=== PATIENT | female | born 1995 ===

== ENCOUNTER 2019-08-19 03:15 | Emergency (ER) | payer MEDICAID ==
[2019-08-19] MEDS ORDERED: Ondansetron 4 MG Tab.DIS PO STA (03:55)
[2019-08-19] MEDS ORDERED: Alum Hydroxide/Mag Hydroxide 15 ML, Lidocaine 2% 15 ML PO ONE ×2 (03:55)
[2019-08-19] MEDS ORDERED: Sodium Chloride 0.9% 10 ML Syringe FLUSH PRN (04:16)
[2019-08-19] MEDS ORDERED: Ondansetron 4 MG/2 ML SDV IVPUSH ONE (04:17)
[2019-08-19] MEDS ORDERED: Morphine 2 MG/ML SYRINGE IVPUSH ONE (04:17)
[2019-08-19] MEDS ORDERED: Sodium Chloride 0.9% 1,000 ML IV SCH (04:30)
[2019-08-19] MEDS ORDERED: Iopamidol 755 Mg/ML 100 ML Bottle IV ONE (05:49)
--- NOTE | 2019-08-19 06:33 | EDM.PDOC ---
ED HPI GENERAL MEDICAL PROBLEM - General Chief Complaint: Abdominal Pain Stated Complaint: STOMACH PAIN Time Seen by Provider: 08/19/19 03:40 Source of Information: Reports: Patient History Limitations: Reports: No Limitations - History of Present Illness INITIAL COMMENTS - FREE TEXT/NARRATIVE: Patient presented to the ED because of cramping abdominal pain which started yesterday followed by N/V/D. The stool is mostly watery. There is no fever or chills,no urinary symptoms. Bilateral Middle Abdomen Pain Score (Numeric/FACES): 10 - Related Data Allergies Allergy/AdvReac Type Severity Reaction Status Date / Time No Known Allergies Allergy Verified 08/19/19 03:33 Home Meds: Home Meds Albuterol Sulfate [Albuterol Sulfate Hfa] 2 puff INH QID PRN 08/19/19 [History] Aluminum Chloride [Drysol] 1 dose TOP BEDTIME PRN 08/19/19 [History] Cetirizine [ZyrTEC] 10 mg PO DAILY 08/19/19 [History] Cholecalciferol (Vitamin D3) [Vitamin D3] 1,000 units PO DAILY 08/19/19 [History] ClonazePAM [KlonoPIN] 0.5 mg PO TID 08/19/19 [History] Codeine/guaiFENesin [Robitussin AC] 5 ml PO Q4HR PRN 08/19/19 [History] Escitalopram Oxalate 20 mg PO DAILY 08/19/19 [History] Fluticasone Propionate [Flonase] 2 sprays NASBOTH DAILY PRN 08/19/19 [History] Gabapentin [Neurontin] 300 mg PO BEDTIME 08/19/19 [History] Levothyroxine 75 mcg PO DAILY 08/19/19 [History] Montelukast [Singulair] 10 mg PO DAILY 08/19/19 [History] Naproxen 500 mg PO BID 08/19/19 [History] Ondansetron [Zofran ODT] 4 mg PO Q4H PRN #5 tab.dis 08/19/19 [Rx] Propranolol HCl [Propranolol] 80 mg PO DAILY 08/19/19 [History] SUMAtriptan [Imitrex] 50 mg PO DAILY PRN 08/19/19 [History] Tretinoin [Retin-A 0.025% Cream] 1 dose TOP BEDTIME 08/19/19 [History] Zolpidem Tartrate [Ambien] 5 mg PO BEDTIME PRN 08/19/19 [History] busPIRone HCl [Buspirone HCl] 15 mg PO TID 08/19/19 [History] metFORMIN HCl [Metformin HCl] 500 mg PO BID 08/19/19 [History] ondansetron HCL [Ondansetron HCl] 4 mg PO Q8HR PRN 08/19/19 [History] polyethylene glycoL 3350 [MiraLAX] 17 gm PO DAILY 08/19/19 [History] Past Medical History Cardiovascular History: Reports: Hypertension 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 Musculoskeletal History: Reports: Other (See Below) Other Musculoskeletal History: chronic knee pain Psychiatric History: Reports: Depression Dermatologic History: Reports: Melanoma - Past Surgical History Female Surgical History: Reports: Breast Reduction Endocrine Surgical History: Reports: Thyroidectomy Social & Family History - Family History Family Medical History: Noncontributory - Tobacco Use Smoking Status *Q: Never Smoker - Caffeine Use Caffeine Use: Reports: Coffee - Recreational Drug Use Recreational Drug Use: No ED ROS GENERAL - Review of Systems Review Of Systems: See Below Constitutional: Reports: No Symptoms HEENT: Reports: No Symptoms Respiratory: Reports: No Symptoms Cardiovascular: Reports: No Symptoms Endocrine: Reports: No Symptoms GI/Abdominal: Reports: Abdominal Pain, Nausea, Vomiting : Reports: No Symptoms Musculoskeletal: Reports: No Symptoms Skin: Reports: No Symptoms ED EXAM, GI/ABD - Physical Exam Exam: See Below Exam Limited By: No Limitations General Appearance: Alert, No Apparent Distress Ears: Normal External Exam, Normal Canal, Hearing Grossly Normal Nose: Normal Inspection, Normal Mucosa Throat/Mouth: Normal Inspection, Normal Lips, Normal Teeth, Normal Gums Head: Atraumatic, Normocephalic Neck: Normal Inspection, Supple, Non-Tender, Full Range of Motion Respiratory/Chest: No Respiratory Distress, Lungs Clear, Normal Breath Sounds Cardiovascular: Normal Peripheral Pulses, Regular Rate, Rhythm, No Edema GI/Abdominal Exam: Normal Bowel Sounds, Soft, Other (diffusely tender) Back Exam: Normal Inspection, Full Range of Motion Extremities: Normal Inspection, Normal Range of Motion, Non-Tender Course - Vital Signs Text/Narrative:: Labs/Abd-pelvic CT was discussed with patient and verbalized full understanding NS 1 L bolus Zofran 4 mg IV x1 Morphine 2 mg IV x1 Last Recorded V/S: Last Vital Signs Temp 36.9 C 08/19/19 03:34 Pulse 93 08/19/19 03:34 Resp 16 08/19/19 03:34 BP 124/88 08/19/19 03:34 Pulse Ox 100 08/19/19 03:34 - Orders/Labs/Meds Orders: Active Orders 24 hr Category Date Time Status Abdomen Pelvis w Cont [CT] Stat Exams 08/19/19 04:18 Ordered Sodium Chloride 0.9% [Normal Saline] 1,000 ml Med 08/19/19 04:30 Active IV ASDIRECTED Sodium Chloride 0.9% [Saline Flush] Med 08/19/19 04:16 Active 10 ml FLUSH ASDIRECTED PRN Saline Lock Insert [OM.PC] Routine Oth 08/19/19 04:16 Ordered Medication Orders Sodium Chloride (Normal Saline) 1,000 mls @ 999 mls/hr IV ASDIRECTED JARED Last Admin: 08/19/19 04:29 Dose: 999 mls/hr Documented by: BRIANNA Sodium Chloride (Saline Flush) 10 ml FLUSH ASDIRECTED PRN PRN Reason: Keep Vein Open Labs: Laboratory Tests 08/19/19 08/19/19 08/19/19 Range/Units 04:15 04:15 04:15 WBC 12.1 H (4.5-12.0) X10-3/uL RBC 5.06 (3.23-5.20) x10(6)uL Hgb 13.8 (11.5-15.5) g/dL Hct 43.7 (30.0-51.3) % MCV 86.4 (80-96) fL MCH 27.3 L (27.7-33.6) pg MCHC 31.6 L (32.2-35.4) g/dL RDW 12.1 (11.5-15.5) % Plt Count 322 (125-369) X10(3)uL MPV 8.2 (7.4-10.4) fL Neut % (Auto) 77.8 (46-82) % Lymph % (Auto) 14.8 (13-37) % Archuleta % (Auto) 6.0 (4-12) % Eos % (Auto) 1 (1.0-5.0) % Baso % (Auto) 1 (0-2) % Neut # (Auto) 9.4 H (1.6-8.3) # Lymph # (Auto) 1.8 (0.6-5.0) # Archuleta # (Auto) 0.7 (0.0-1.3) # Eos # (Auto) 0.1 (0.0-0.8) # Baso # (Auto) 0.1 (0.0-0.2) # Sodium 140 (135-145) mmol/L Potassium 3.8 (3.5-5.3) mmol/L Chloride 103 (100-110) mmol/L Carbon Dioxide 28 (21-32) mmol/L BUN 10 (7-18) mg/dL Creatinine 0.7 (0.55-1.02) mg/dL Est Cr Clr Drug Dosing 104.28 mL/min Estimated GFR (MDRD) > 60 (>60) BUN/Creatinine Ratio 14.3 (9-20) Glucose 104 (80-116) mg/dL Calcium 8.8 (8.6-10.2) mg/dL Total Bilirubin 0.8 (0.1-1.3) mg/dL AST 13 (5-25) IU/L ALT 17 (12-36) U/L Alkaline Phosphatase 104 (56-112) IU/L Total Protein 7.6 (6.0-8.0) g/dL Albumin 3.8 (3.5-5.2) g/dL Globulin 3.8 g/dL Albumin/Globulin Ratio 1.0 Amylase 40 (25-115) U/L Lipase 86 (73-393) U/L HCG, Quant < 5 L (<5) mIU/mL Urine Color (YELLOW) Urine Appearance (CLEAR) Urine pH (5.0-6.5) Ur Specific Randolph (1.010-1.025) Urine Protein (NEGATIVE) mg/dL Urine Glucose (UA) (NORMAL) mg/dL Urine Ketones (NEGATIVE) mg/dL Urine Occult Blood (NEGATIVE) Urine Nitrite (NEGATIVE) Urine Bilirubin (NEGATIVE) Urine Urobilinogen (NEGATIVE) mg/dL Ur Leukocyte Esterase (NEGATIVE) Urine RBC (0-5) Urine WBC (0-5) Ur Squamous Epith Cells (NS,R,O) Urine Bacteria (NS) 07/07/20 Range/Units 05:15 WBC (4.5-12.0) X10-3/uL RBC (3.23-5.20) x10(6)uL Hgb (11.5-15.5) g/dL Hct (30.0-51.3) % MCV (80-96) fL MCH (27.7-33.6) pg MCHC (32.2-35.4) g/dL RDW (11.5-15.5) % Plt Count (125-369) X10(3)uL MPV (7.4-10.4) fL Neut % (Auto) (46-82) % Lymph % (Auto) (13-37) % Archuleta % (Auto) (4-12) % Eos % (Auto) (1.0-5.0) % Baso % (Auto) (0-2) % Neut # (Auto) (1.6-8.3) # Lymph # (Auto) (0.6-5.0) # Archuleta # (Auto) (0.0-1.3) # Eos # (Auto) (0.0-0.8) # Baso # (Auto) (0.0-0.2) # Sodium (135-145) mmol/L Potassium (3.5-5.3) mmol/L Chloride (100-110) mmol/L Carbon Dioxide (21-32) mmol/L BUN (7-18) mg/dL Creatinine (0.55-1.02) mg/dL Est Cr Clr Drug Dosing mL/min Estimated GFR (MDRD) (>60) BUN/Creatinine Ratio (9-20) Glucose (80-116) mg/dL Calcium (8.6-10.2) mg/dL Total Bilirubin (0.1-1.3) mg/dL AST (5-25) IU/L ALT (12-36) U/L Alkaline Phosphatase (56-112) IU/L Total Protein (6.0-8.0) g/dL Albumin (3.5-5.2) g/dL Globulin g/dL Albumin/Globulin Ratio Amylase (25-115) U/L Lipase (73-393) U/L HCG, Quant (<5) mIU/mL Urine Color Yellow (YELLOW) Urine Appearance Clear (CLEAR) Urine pH 7.0 H (5.0-6.5) Ur Specific Randolph 1.005 L (1.010-1.025) Urine Protein Negative (NEGATIVE) mg/dL Urine Glucose (UA) Normal (NORMAL) mg/dL Urine Ketones Negative (NEGATIVE) mg/dL Urine Occult Blood Negative (NEGATIVE) Urine Nitrite Negative (NEGATIVE) Urine Bilirubin Negative (NEGATIVE) Urine Urobilinogen Normal (NEGATIVE) mg/dL Ur Leukocyte Esterase Negative (NEGATIVE) Urine RBC 0-5 (0-5) Urine WBC 0-5 (0-5) Ur Squamous Epith Cells Occasional (NS,R,O) Urine Bacteria Rare H (NS) Meds: Medications Generic Name Dose Route Start Last Admin Trade Name Freq PRN Reason Stop Dose Admin Sodium Chloride 1,000 mls @ 999 mls/hr 08/19/19 04:30 08/19/19 04:29 Normal Saline IV 999 mls/hr ASDIRECTED JARED Administration Sodium Chloride 10 ml 08/19/19 04:16 Saline Flush FLUSH ASDIRECTED PRN Keep Vein Open Discontinued Medications Generic Name Dose Route Start Last Admin Trade Name Freq PRN Reason Stop Dose Admin Al Hydroxide/Mg Hydroxide 15 0 ml 08/19/19 03:55 08/19/19 04:11 ml/ Lidocaine HCl 15 ml PO 08/19/19 03:56 30 ml ONETIME ONE Administration Iopamidol 100 ml 08/19/19 05:49 08/19/19 05:53 Isovue-370 (76%) IV 08/19/19 05:50 100 ml ONETIME ONE Administration Morphine Sulfate 2 mg 08/19/19 04:17 08/19/19 04:28 Morphine IVPUSH 08/19/19 04:18 2 mg ONETIME ONE Administration Ondansetron HCl 4 mg 08/19/19 03:55 08/19/19 04:11 Zofran Odt PO 08/19/19 03:56 4 mg NOW STA Administration Ondansetron HCl 4 mg 08/19/19 04:17 Zofran IVPUSH 08/19/19 04:18 ONETIME ONE Departure - Departure Time of Disposition: 06:30 Disposition: Home, Self-Care 01 Condition: Good Clinical Impression: Acute gastroenteritis - Discharge Information Prescriptions: Ondansetron [Zofran ODT] 4 mg PO Q4H PRN #5 tab.dis PRN Reason: Nausea Instructions: Viral Gastroenteritis, Adult, [id number] Referrals: Anu Orourke, [employer]INE T[employer] 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 OPERATOR [Primary Care Provider] - Forms: ED Department Discharge Additional Instructions: Please read disvcharge instructions on acute gastroenteritis Frequent hand washing Drink 2-3 liters of water a day Zofran ODT 4 mg every 4 hours as needed for nausea Imodium(over the counter) take 2 tablets every 6 hours as needed for diarrhea Follow up as needed Sepsis Event Note (ED) - Evaluation Sepsis Screening Result: No Definite Risk - Focused Exam Vital Signs: Vital Signs Temp Pulse Resp BP Pulse Ox 08/19/19 03:34 36.9 C 93 16 124/88 100 - My Orders Last 24 Hours: My Active Orders 08/19/19 04:16 Sodium Chloride 0.9% [Saline Flush] 10 ml FLUSH ASDIRECTED PRN Saline Lock Insert [OM.PC] Routine 08/19/19 04:18 Abdomen Pelvis w Cont [CT] Stat 08/19/19 04:30 Sodium Chloride 0.9% [Normal Saline] 1,000 ml IV ASDIRECTED - Assessment/Plan Last 24 Hours: My Active Orders 08/19/19 04:16 Sodium Chloride 0.9% [Saline Flush] 10 ml FLUSH ASDIRECTED PRN Saline Lock Insert [OM.PC] Routine 08/19/19 04:18 Abdomen Pelvis w Cont [CT] Stat 08/19/19 04:30 Sodium Chloride 0.9% [Normal Saline] 1,000 ml IV ASDIRECTED
== END 2019-08-19 06:46 | disposition home or self-care (01) ==
LOC: FB.ED 03:15
DX: K52.9 Noninfective gastroenteritis and colitis, unspecified (principal); I10 Essential (primary) hypertension; F32.9 Major depressive disorder, single episode, unspecified; Z79.899 Other long term (current) drug therapy; Z79.84 Long term (current) use of oral hypoglycemic drugs
CPT/HCPCS: 74177; 80053; 81001; 82150; 83690; 84702; 85025; 96361; 96374; 99284; A9270; J2270; J7030; Q9967; 99283

== ENCOUNTER 2020-07-25 20:18 | Emergency (ER) | payer MEDICAID ==
--- NOTE | 2020-07-25 20:40 | EDM.PDOC ---
ED HPI GENERAL MEDICAL PROBLEM - General Chief Complaint: Headache Stated Complaint: MIGRAINE Time Seen by Provider: 07/25/20 20:39 Source of Information: Reports: Patient, Provider History Limitations: Reports: No Limitations - History of Present Illness INITIAL COMMENTS - FREE TEXT/NARRATIVE: 25-year-old female reports she had onset of headache 3 days ago (she awoke with it). The headache was left-sided and seemed to radiate to the back of her head. It was sharp and throbbing type headache. It was associated with nausea but no vomiting. She reports the headache waxed and waned but never really went away. She states that it was like her previous migraines except that it just did not respond to the usual [id number] medications that she uses to control her headaches and that was unusual about it. She had no fevers or chills. She has been swallowing normally but she does feel that her anterior neck is somewhat tender to palpation particularly over the area of her thyroid and where she had her thyroid partially removed. That has been ongoing for about the past week. She has had no difficulty breathing. There has been no cough or nasal congestion. No sore throat. She does feel that her neck is somewhat stiff but this is also something that has been associated with her headaches in the past as well. She was seen initially in the walk-in clinic and had tests performed which showed an elevated white blood cell count at 16.0 but normal tests otherwise including a normal TSH. The patient had received IM Toradol and Reglan and Benadryl and and even received a liter of normal saline and she was still having 9/10 level of pain in her head. She reported that she got minimal relief of her headache. No vision problems. No photophobia. No arm or leg weakness. She was transferred from the walk-in clinic to the emergency department for ongoing cares and further evaluation. Please see Sarah Cardenas's note. There are no other associated signs or symptoms. There are no other modifying factors. 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 (Toradol, Reglan, Benadryl, IV fluids)) Headache Pain Score (Numeric/FACES): 10 - Related Data Allergies Allergy/AdvReac Type Severity Reaction Status Date / Time No Known Allergies Allergy Verified 08/19/19 03:33 Home Meds: Home Meds Albuterol Sulfate [Albuterol Sulfate Hfa] 2 puff INH QID PRN 08/19/19 [History] Aluminum Chloride [Drysol] 1 dose TOP BEDTIME PRN 08/19/19 [History] Cetirizine [ZyrTEC] 10 mg PO DAILY 08/19/19 [History] Cholecalciferol (Vitamin D3) [Vitamin D3] 1,000 units PO DAILY 08/19/19 [History] ClonazePAM [KlonoPIN] 0.5 mg PO BID PRN 08/19/19 [History] Codeine/guaiFENesin [Robitussin AC] 5 ml PO Q4HR PRN 08/19/19 [History] Escitalopram Oxalate 20 mg PO DAILY 08/19/19 [History] Levothyroxine 75 mcg PO DAILY 08/19/19 [History] Montelukast [Singulair] 10 mg PO DAILY 08/19/19 [History] Naproxen 500 mg PO BID 08/19/19 [History] Propranolol HCl [Propranolol] 80 mg PO DAILY 08/19/19 [History] SUMAtriptan [Imitrex] 50 mg PO DAILY PRN 08/19/19 [History] Tretinoin [Retin-A 0.025% Cream] 1 dose TOP BEDTIME 08/19/19 [History] ondansetron HCL [Ondansetron HCl] 4 mg PO Q8HR PRN 08/19/19 [History] polyethylene glycoL 3350 [MiraLAX] 17 gm PO DAILY PRN 08/19/19 [History] Azithromycin [Zithromax] 250 mg PO ASDIRECTED 5 Days #6 tab 07/25/20 [Rx] Fluticasone Propionate [Flonase] 2 sprays NASBOTH BID #1 bottle 07/25/20 [Rx] Naltrexone HCl/Bupropion HCl [Contrave ER 8-90 mg Tablet] 2 tab PO QAM 07/25/20 [History] Phentermine HCl 15 mg PO DAILY 07/25/20 [History] busPIRone [Buspar] 10 mg PO BID 07/25/20 [History] Past Medical History Cardiovascular History: Reports: Hypertension 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: Polycystic Ovaries (PCOS) Musculoskeletal History: Reports: Other (See Below) Other Musculoskeletal History: chronic knee pain Neurological History: Reports: Migraines Psychiatric History: Reports: Anxiety, Depression Dermatologic History: Reports: Melanoma - Past Surgical History Female Surgical History: Reports: Breast Reduction Endocrine Surgical History: Reports: Thyroidectomy Oncologic Surgical History: Reports: Other (See Below) (Removal of melanoma from back.) Social & Family History - Family History Family Medical History: No Pertinent Family History - Tobacco Use Tobacco Use Status *Q: Never Tobacco User - Caffeine Use Caffeine Use: Reports: Coffee, Soda - Alcohol Use Alcohol Use History: Yes Alcohol Use Frequency: Socially - Recreational Drug Use Recreational Drug Use: No - Living Situation & Occupation 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 Denies: Abdominal Pain, Vomiting : Denies: Dysuria, Hematuria Musculoskeletal: Denies: Neck Pain, Shoulder Pain Skin: Denies: Diaphoresis, Rash Neurological: Reports: Headache. Denies: Dizziness, Syncope Psychiatric: Denies: Anxiety, Depression Hematologic/Lymphatic: Denies: Easy Bleeding, Easy Bruising Immunologic: Reports: Other - Physical Exam Exam: See Below Exam Limited By: No Limitations General Appearance: Alert, WD/WN, Moderate Distress (Appears in some pain. She has awake, alert and appropriately responsive and interactive.) Eye Exam: Bilateral Eye: EOMI, Normal Inspection (Sclera are anicteric) Ears: Normal External Exam, Hearing Grossly Normal Nose: Normal Inspection, Normal Mucosa, No Blood Throat/Mouth: Normal Inspection, Normal Lips, Normal Oropharynx, Normal Voice, No Airway Compromise, Evidence of Tongue Biting Head Exam: Atraumatic Neck: Normal Inspection, Supple, Non-Tender, Full Range of Motion, Other (No meningismus.) Respiratory/Chest: No Respiratory Distress, Lungs Clear, Normal Breath Sounds, No Accessory Muscle Use, Chest Non-Tender Cardiovascular: Normal Peripheral Pulses, Regular Rate, Rhythm, No Murmur GI/Abdominal: Normal Bowel Sounds, Soft, Non-Tender, No Mass Neuro Exam (Abbreviated): Alert, Oriented, CN II-XII Intact, Normal Cognition, No Motor/Sensory Deficits Back Exam: Normal Inspection, Full Range of Motion Extremities: Normal Inspection, Normal Range of Motion, Non-Tender, No Pedal Edema, Normal Capillary Refill Psychiatric: Normal Affect Skin Exam: Warm, Dry, Intact, Normal Color, No Rash Course - Vital Signs Last Recorded V/S: Last Vital Signs Temp 36.7 C 07/25/20 20:26 Pulse 64 07/26/20 00:16 Resp 18 07/26/20 00:16 BP 118/80 07/26/20 00:16 Pulse Ox 98 07/26/20 00:16 - Orders/Labs/Meds Orders: Active Orders 24 hr Category Date Time Status Head wo Cont [CT] Stat Exams 07/25/20 21:20 Taken Labs: Laboratory Tests 07/25/20 07/25/20 Range/Units 18:00 18:00 ESR 3 (0-20) mm/hr C-Reactive Protein 1.1 H (0.5-0.9) mg/dL Meds: Medications Discontinued Medications Generic Name Dose Route Start Last Admin Trade Name Radha PRN Reason Stop Dose Admin Sodium Chloride 500 mls @ 999 mls/hr 07/25/20 21:22 07/25/20 21:34 Normal Saline IV 07/25/20 21:52 999 mls/hr .BOLUS ONE Administration Lorazepam 1 mg 07/25/20 21:22 07/25/20 21:33 Lorazepam 2 Mg/Ml Sdv IVPUSH 07/25/20 21:23 1 mg ONETIME ONE Administration Prochlorperazine Edisylate 10 mg 07/25/20 21:22 07/25/20 21:33 Prochlorperazine 10 Mg/2 Ml Sdv IVPUSH 07/25/20 21:23 10 mg ONETIME ONE Administration - Radiology Interpretation Free Text/Narrative:: CT scan of head showed no bleeding. There was complete opacification of the left maxillary sinus. The sella space was somewhat generous and they did pose the possibility of there being some increased intracranial pressure. However, there was no evidence of this anywhere else on the CT scan. - Re-Assessments/Exams Free Text/Narrative Re-Assessment/Exam: 07/25/20 22:30: Patient resting comfortably now. Her IV fluids have been infused. Her medications have been given IV. CT scan of the head is completed results are pending at this point. Her other blood tests were reassuring. 07/25/20 23:20: CT scan showed no definite intracranial in reality other than the left maxillary sinusitis. The patient is awake now and feeling much improved. Her headache is essentially gone. She has a supple and nontender neck. She is bright and talking on the phone with no problems. She has no neurologic deficits. I will plan on discharging the patient and treating her with Flonase for her sinusitis. I have told her about the questionable finding on the CT scan of her head and told her that she will need to follow-up with her primary provider. The patient is comfortable with this plan for discharge. Departure - Departure Time of Disposition: 23:50 Disposition: Home, Self-Care 01 Condition: Good (Improved) Clinical Impression: Left maxillary sinusitis Migraine headache Qualifiers: Migraine type: unspecified Status migrainosus presence: with status migrainosus Intractability: not intractable Qualified Code(s): G43.901 - Migraine, unspecified, not intractable, with status migrainosus - Discharge Information Prescriptions: Fluticasone Propionate [Flonase] 2 sprays NASBOTH BID #1 bottle Azithromycin [Zithromax] 250 mg PO ASDIRECTED 5 Days #6 tab Instructions: Migraine Headache, [id number], Sinusitis, Adult, [id number] Referrals: PCP,None [Primary Care Provider] - Forms: ED Department Discharge Additional Instructions: Your blood tests were reassuring. The CT scan of your head showed evidence of a left maxillary sinus infection. There was no evidence of tumor or bleeding. You markedly improved after the medications that you were given by me for your migraine headache. I suspect that the sinus infection may have made your migraine headache worse. Did send prescription for Zithromax and for Flonase to [facility] in [place] and you should take these medications up later today and begin taking them today, 07/26/2020. You need to increase your fluid intake. The CT scan of your head also showed a small area in the base of your brain that seemed to have slightly more fluid and a stent would be normal. There were no other abnormalities within the brain. The radiologist did recommend that you follow-up with your primary doctor as you may need an MRI of your brain and further tests to check this out. Back to the emergency department for fever, worsening headache, unrelenting vomiting or any other concerning signs or symptoms. Sepsis Event Note (ED) - Evaluation Sepsis Screening Result: No Definite Risk - My Orders Last 24 Hours: My Active Orders 07/25/20 21:20 Head wo Cont [CT] Stat - Assessment/Plan Last 24 Hours: My Active Orders 07/25/20 21:20 Head wo Cont [CT] Stat
[2020-07-25] MEDS ORDERED: Sodium Chloride 0.9% 500 ML IV ONE (21:22)
[2020-07-25] MEDS ORDERED: LORazepam 2 MG/ML SDV IVPUSH ONE (21:22)
[2020-07-25] MEDS ORDERED: Prochlorperazine 10 MG/2 ML SDV IVPUSH ONE (21:22)
== END 2020-07-26 00:07 | disposition home or self-care (01) ==
LOC: FB.ED 20:18
DX: G43.901 Migraine, unspecified, not intractable, with status migrainosus (principal); J32.0 Chronic maxillary sinusitis; I10 Essential (primary) hypertension; Z79.899 Other long term (current) drug therapy
CPT/HCPCS: 36415; 70450; 85651; 86140; 96374; 96375; 99284; J0780; J2060; J7040